=== PATIENT | male | born 1930 | race Caucasian/White ===

== ENCOUNTER 2018-02-05 09:57 | Inpatient (IN) | payer MEDICARE, BC ==
[2018-02-05 10:32] LABS: CHLORIDE,CL 96 mEq/L (98-106); SODIUM,NA 134 mEq/L (136-145)
[2018-02-05] MEDS: Sodium Chloride 0.9% 1,000 ML IV SCH ×2 (11:56→13:21)
[2018-02-05] MEDS ORDERED: Amiodarone 150 MG/3 ML SDV IVPUSH ONE (13:43)
[2018-02-05 13:50] VITALS: BP 78/62
--- NOTE | 2018-02-06 13:00 | DISCH ---
ADMISSION DIAGNOSES: 1. Nnnjg-yj-owvzrmw renal failure. 2. Dehydration. 3. History of chronic obstructive pulmonary disease. 4. History of coronary artery disease. DISCHARGE DIAGNOSIS: 1. VEKAX-[id number]-[id number] RENAL FAILURE WITH MILD HYPOKALEMIA. 2. WIDE COMPLEX TACHYCARDIA. 3. HYPOTENSION. 4. ELEVATED TROPONIN. HISTORY: The patient is an 87-year-old, who presented to a local provider a week ago for cough and cold-type symptoms. He was given oral antibiotics and sent home. Over the last 48 hours, he has had a marked decline in status with decreased oral intake, feeling weak, and a little short of breath at times. No real chest pain. Has not had any significant productive sputum. We evaluated him in my office, and at that time, the patient was found to have blood pressure of 100/60. He was not febrile. Lab workup showed an elevated white count and CRP. He had a BNP of over 40,000, and his creatinine came back at 3.6 with a BUN of 73, his potassium was 5.5. At that time, the patient had already been sent to the hospital for admission and started on IV fluids for dehydration and lckmu-pf-yhpeczp renal failure. We sent him down for troponin, which ultimately came back at 2.9 as well. HOSPITAL COURSE: The patient was given a liter bolus of normal saline during his stay. His blood pressures continued to fluctuate between 80 to 90 systolic. For the most part, he is completely asymptomatic other than he feels tired. Has not had any chest pain or shortness of breath during his admission. I was able to get a hold of Dr. Mcnulty at [facility] for potential transfer given this high risk patient with multiple significant morbidities. We talked about options at this time. Next time when I talked to Dr. Mcnulty, the patient had a pressure of around 90 systolic and he does not look "shocky" necessarily, and we contemplated cardioversion here in [place]. We elected to proceed with transfer, could not be accomplished via helicopter, and [facility] was contacted and they have agreed to take the patient to [facility] in [place] for more definitive cares. Did have a brief consultation with Dr. Ball, cutting and creasing press operator at [facility] as well. Regarding the patient's current status, he feels transfer is appropriate, although feels [facility] is appropriate for him; hard for him to give an opinion regarding the need for cardioversion as the patient is borderline unstable at this time. Ultimately, I did talk to Dr. Herrera, on-call emergency room doctor, where the patient will be apparently going to their facility. He feels he likely ultimately will need a cardioversion given his new onset wide complex tachycardia. I will talk to the patient about that versus waiting for more definitive care from a higher level facility, and [facility] is here in the next 20 to 30 minutes at the time of this dictation. COMPLICATIONS DURING THE STAY: None. CONSULTATIONS: 1. Dr. Mcnulty, Internal Medicine, [facility] [place]. 2. Dr. Herrera, emergency room physician, [facility], as well. RODNEY/JORGITO /[id number]
== END 2018-02-05 14:20 | disposition critical access hospital (66) | DRG 683 ==
LOC: CC.MS 09:57 → CC.FCMC 09:57 → CC.MS 11:08 → UNDOADMIN 11:08 → CC.MS 12:15
PROVIDERS: ADMIT Family Medicine; ATTEND Family Medicine
DX: N17.9 Acute kidney failure, unspecified (principal); I13.0 Hypertensive heart and chronic kidney disease with heart failure and stage 1 through stage 4 chronic kidney disease, or unspecified chronic kidney disease; I25.10 Atherosclerotic heart disease of native coronary artery without angina pectoris; N18.9 Chronic kidney disease, unspecified; E78.5 Hyperlipidemia, unspecified; R06.02 Shortness of breath; E11.22 Type 2 diabetes mellitus with diabetic chronic kidney disease; J44.9 Chronic obstructive pulmonary disease, unspecified; R00.0 Tachycardia, unspecified; I95.9 Hypotension, unspecified; R74.8 Abnormal levels of other serum enzymes; E86.0 Dehydration; I50.9 Heart failure, unspecified; E87.5 Hyperkalemia; N40.0 Benign prostatic hyperplasia without lower urinary tract symptoms; M25.562 Pain in left knee; M25.561 Pain in right knee; Z79.82 Long term (current) use of aspirin; Z87.891 Personal history of nicotine dependence; Z79.4 Long term (current) use of insulin; Z79.899 Other long term (current) drug therapy
CPT/HCPCS: 36415; 80048; 81003; 83880; 84484; 85025; 85379; 86140; 93005; J7030; 71046; J0282